=== PATIENT | female | born 2000 | race Caucasian/White ===

== ENCOUNTER 2022-06-11 05:14 | Emergency (ER) | payer OTHER, SELFPAY ==
[2022-06-11 05:19] VITALS: BP 122/65; PULSE 93; RESP 16; TEMP 36.6; O2SAT 100
--- NOTE | 2022-06-11 08:00 | ED.WOUNDLAC ---
HPI - Wound/Laceration General Chief Complaint: Wound/Laceration Stated Complaint: finger laceration Time Seen by Provider: 06/11/22 07:01 History of Present Illness HPI narrative: Patient is a 21-year-old female who presents to the ER with laceration to left thumb. Palmar aspect. Flexion extension intact. No numbness or tingling. She had dropped a coffee cup at work and it shattered. She went to pick it up and it got caught on a cabinet and then she cut her thumb. Unknown last tetanus shot. No additional concerns. Related Data Home Medications Medication Instructions Recorded Confirmed lamotrigine 25 mg tablet mg 06/11/22 liotrix 12.5 mcg-50 mcg tablet tablet 06/11/22 lurasidone 40 mg tablet (Latuda) mg 06/11/22 Allergies Allergy/AdvReac Type Severity Reaction Status Date / Time No Known Allergies Allergy Verified 06/11/22 05:15 Review of Systems Musculoskeletal: Musculoskeletal: Denies arthralgias and Denies joint swelling Integumentary/Breasts: Skin/Breast: Denies erythema and Denies rash Comments: Left thumb laceration Neurologic: Denies focal weakness and Denies numbness PMFSH Past Medical History Medical History (Updated 06/11/22 @ 08:14 by Martínez Diaz MD) Healthy female adult Surgical History Surgical History (Updated 06/11/22 @ 08:14 by Martínez Diaz MD) No history of previous surgery Exam Narrative: GENERAL: Well-appearing, well-nourished, and in no acute distress. HEAD: Normocephalic, atraumatic. ENT: Mucous membranes moist. HEART: Regular rate and rhythm. Normal peripheral pulses. EXTREMITIES: Focused exam of the left hand reveals full range of motion of the left thumb with isolation of the first MCP and the DIP with normal strength. Neurovascular intact in the affected finger. There is a 4 cm laceration from the proximal phalanx to the distal phalanx crossing the DIP but in a bloodless field there is no visualization of penetration of the joint space or bone. Otherwise exam of the left hand/wrist/forearm is normal. SKIN: Warm, dry, no rash. Laceration as noted above. NEURO: No focal deficits. Alert and oriented x3. PSYCH: Normal mood and affect. Course Vital Signs Vital signs: Vital Signs Temperature 97.9 F 06/11/22 05:19 Pulse Rate 93 06/11/22 05:19 Respiratory Rate 16 06/11/22 05:19 Blood Pressure 122/65 06/11/22 05:19 Pulse Oximetry 100 06/11/22 05:19 Oxygen Delivery Room Air 06/11/22 05:19 Temperature 97.9 F 06/11/22 05:19 Pulse Rate 93 06/11/22 05:19 Respiratory Rate 16 06/11/22 05:19 Blood Pressure 122/65 06/11/22 05:19 Pulse Oximetry 100 06/11/22 05:19 Oxygen Delivery Room Air 06/11/22 05:19 Procedures Laceration Laceration 1: Date: 06/11/22 Time: 08:30 Site: hand (thumb) Side (If applicable): left Size (cm): 4 Description: linear and clean Depth: simple, single layer Local Anesthetic: lidocaine 1% Amount of anesthesia used (mL): 3 Pre-repair: wound explored, irrigated extensively and deep structures intact ====== Skin Level ====== Skin layer closed with: nylon Size (cm): 5-0 Number of sutures: 93 Technique: simple, interrupted ====== Subcutaneous Layer ====== ====== Muscle Layer ====== ====== Tendon Layer ====== Discharge Plan Discharge Clinical Impression: Laceration of thumb Patient Disposition: Home, Self-Care Condition: Stable Instructions: Care For Your Stitches (ED), Laceration (ED) Additional Instructions: You will need your sutures removed in 14 days. Return to the ER if your thumb is red and hot, it is draining pus, or you have additional concerns. You received a tetanus shot today. You may remove the sutures yourself or return to the ER. Prescriptions: No Action lamotrigine 25 mg Tablet Euthroid-1 12.5-50 mcg Tablet lurasi
[2022-06-11] MEDS: IBUPROFEN 600 MG TABLET PO (08:05)
[2022-06-11] MEDS: TETANUS,DIPHTHERIA,AC PERTUSSIS ADULT (0.5 ML) BOOSTRIX IM (08:06)
[2022-06-11] MEDS: LIDOCAINE HCL 1% LOCAL INJ 20 ML VIAL (08:08)
== END 2022-06-11 08:51 | disposition home or self-care (01) ==
PROVIDERS: Emergency Provider Emergency Medicine
DX: S61.012A Laceration without foreign body of left thumb without damage to nail, initial encounter (principal); Z23 Encounter for immunization; W26.8XXA Contact with other sharp object(s), not elsewhere classified, initial encounter
CPT/HCPCS: 12002; 90471; 90715; 99282; A9270